=== PATIENT | female | born 1985 | race Two or more races ===

== ENCOUNTER 2016-09-09 15:59 | Emergency (ER) | payer BC ==
[~2016-09-09] VITALS: Ht 170.2 cm; Wt 61.7 kg
[~2016-09-09 15:59] MED LIST: ATARAX25 MG ORAL; AZITHROMYCIN250 MG PO; BENADRYL25 MG ORAL; CIPROFLOXACIN; CLOBETASOL EMOL15 GM TP; IBUPROFEN600 MG ORAL; MECLIZINE HCL25 MG ORAL; NKM; PREDNISONE20 MG ORAL; RANITIDINE HCL150 MG ORAL; VIGAMOX1 DROP RIGHT EYE; ZITHROMAX250 MG ORAL; [UNRECOGNIZED DRUG - OTHER]; birth control
[2016-09-09 16:57] LABS: APPEARANCE,URINE CLEAR; KETONES,URINE NEGATIVE (NEGATIVE); LEUKOCYTE ESTERASE ,URINE NEGATIVE (NEGATIVE); NITRITE,URINE NEGATIVE (NEGATIVE); PH,URINE 6 (4.5-8.0); PROTEIN,URINE NEGATIVE (NEGATIVE); UROBILINOGEN,URINE NORMAL MG/DL (0.0-1.0)
[2016-09-09] MEDS ORDERED: DEBROX15 M1 BOTH EARS (17:03)
[2016-09-09] MEDS ORDERED: AMOXICILLIN500 MG ORAL (17:03)
[2016-09-09 17:16] VITALS: BP 102/57
[2016-09-10] MEDS ORDERED: ZITHROMAX250 MG ORAL (15:20)
--- NOTE | 2016-09-11 14:53 | Emergency Room Report ---
History of Present Illness General Chief Complaint: Flu Like Symptoms Source: Patient Present Illness HPI Patient is a 30-year-old female presenting for sore throat, cough, and chills for the past 2 months. Pain is described as a 7/10 dull ache to the back of the throat and is worse with swallowing. She denies any sick contacts recent travel. She admits to slight nausea but denies V, SOB, CLARKE, neck pain, rash, abd pain Allergies: Coded Allergies: No Known Allergies (Unverified , 05/24/12) Patient History Past Medical History: see triage record Pertinent Family History: none Last Menstrual Period: 09/03/16 Now: No Reviewed Nursing Documentation: PMH: Agreed, PSxH: Agreed Nursing Documentation-PMH Past Medical History: No Stated History Review of Systems All Other Systems: negative except mentioned in HPI Physical Exam Vital Signs Date Time Temp Pulse Resp B/P Pulse Ox O2 Delivery O2 Flow Rate FiO2 09/09/16 16:09 97.9 80 16 102/57 97 Room Air Sp02 EP Interpretation: reviewed, normal General Appearance: no apparent distress, alert, GCS 15, non-toxic Head: normocephalic, atraumatic Eyes: bilateral eye PERRL, bilateral eye normal inspection ENT: hearing grossly normal, no angioedema, normal voice, tonsillar swelling, pharyngeal erythema, tonsillar exudate, other - cerumen impaction Neck: full range of motion, supple/symm/no masses Respiratory: chest non-tender, lungs clear, normal breath sounds, speaking full sentences Musculoskeletal: back normal, gait/station normal, normal range of motion, non- tender Neurologic: alert, oriented x3, responsive, motor strength/tone normal, sensory intact, speech normal Psychiatric: judgement/insight normal, memory normal, mood/affect normal, no suicidal/homicidal ideation Skin: normal color, no rash, warm/dry, well hydrated Lymphatic: adenopathy Medical Decision Making PA Attestation Dr. Keller is my supervising physician. Patient management was discussed with my supervising physician Diagnostic Impression: Primary Impression: Pharyngitis, acute Qualified Codes: J02.9 - Acute pharyngitis, unspecified Additional Impression: Impacted cerumen of both ears ER Course Patient is a 30-year-old female presenting for sore throat, cough, and chills for the past 2 months Differential diagnosis include but not limited to pharyngitis, sinusitis, AOM, bronchitis, PNA Physical exam: Vitals within normal limits. Afebrile. No apparent distress HEENT exam: There is bilateral tonsillar edema, erythema, and exudate. Uvula midline. Moist mucous membranes. There is bilateral cervical lymphadenopathy. There is bilat cerumen impaction. Lungs are clear to auscultation bilaterally Skin is warm and dry. No rash The patient will be discharged home with a prescription for amoxicillin and debrox and is given ER precautions. Patient will followup with primary care Note: the pt has called back and spoke to MIRTHA Barth. Pt was not tolerating amoxicillin and was changed to azithromycin. Last Vital Signs Date Time Temp Pulse Resp B/P Pulse Ox O2 Delivery O2 Flow Rate FiO2 09/09/16 17:16 97.9 78 16 102/57 97 Room Air Status: improved Disposition: HOME, SELF-CARE Condition: Improved Scripts Azithromycin* (ZITHROMAX*) 250 Mg Tablet 250 MG ORAL DAILY for 5 Days, #6 TAB 1 Refill Prov: Becca Barth 09/10/16 Carbamide Peroxide (DEBROX) 15 Ml Drops 10 DROP BOTH EARS TWICE A DAY for 4 Days, ML 0 Refills Prov: EZEQUIEL PLATA 09/09/16 Amoxicillin* (AMOXIL*) 500 Mg Capsule 500 MG ORAL Q12HR, #20 CAP Prov: EZEQUIEL PLATA 09/09/16 Referrals: ZAFAR WYATT (PCP) Patient Instructions: Cerumen Impaction, Pharyngitis Additional Instructions: I discussed my findings with the patient. All questions and concerns have been answered. Treatment and medication compliance have been addressed. I advised the patient that they need to follow up with PMD in 3-5 days. Return to ED if pain remains or worsens, cough worsens or remains, you notice blood in your sputum, you notice wheezing, you experience a fever, or if needed for any reason. Patient verbalized understanding of discharge instructions. EZEQUIEL PLATA September 11, 2016 14:53
== END 2016-09-09 17:18 | disposition home or self-care (01) ==
LOC: EMR 16:40
DX: J02.9 Acute pharyngitis, unspecified (principal); H61.23 Impacted cerumen, bilateral; R11.0 Nausea
CPT/HCPCS: 81003; 81025; 99284

== ENCOUNTER 2016-11-05 01:13 | Emergency (ER) | payer BC ==
[~2016-11-05] VITALS: Ht 170.2 cm; Wt 60.3 kg
[~2016-11-05 01:13] MED LIST changes: +AMOXICILLIN500 MG ORAL; +DEBROX15 M1 BOTH EARS
--- NOTE | 2016-11-05 01:35 | Emergency Room Report ---
History of Present Illness General Chief Complaint: Vomiting Source: Patient Present Illness HPI This is a 31-year-old female with no past medical history. She presents with chief complaint of abdominal cramps with vomiting and diarrhea. Onset about an hour half ago. While she was at a seafood restaurant, she started having diarrhea. On the way home so vomiting. Salvo weak. Denies any fever or chills. Vomiting is nonbloody nonbilious. Diarrhea is watery. No other complaint. Allergies: Coded Allergies: No Known Allergies (Unverified , 05/24/12) Patient History Past Medical History: see triage record, old chart reviewed Past Surgical History: other Pertinent Family History: none Social History: Denies: smoking Last Menstrual Period: 2 weeks ago Now: No Immunizations: other Reviewed Nursing Documentation: PMH: Agreed, PSxH: Agreed Nursing Documentation-PMH Past Medical History: No Stated History Review of Systems Eye: Denies: blurred vision, eye pain ENT: Denies: ear pain, nose congestion, throat swelling Respiratory: Denies: cough, shortness of breath Cardiovascular: Denies: chest pain, palpitations Gastrointestinal: Reports: abdominal pain, diarrhea, nausea, vomiting Musculoskeletal: Denies: back pain, joint pain Skin: Denies: rash Neurological: Denies: headache, numbness Endocrine: Denies: increased thirst, increased urine Hematologic/Lymphatic: Denies: easy bruising All Other Systems: negative except mentioned in HPI Physical Exam Vital Signs Date Time Temp Pulse Resp B/P Pulse Ox O2 Delivery O2 Flow Rate FiO2 7 01:19 98.1 93 16 111/66 98 Room Air vitals normal Sp02 EP Interpretation: reviewed, normal General Appearance: well appearing, no apparent distress, alert Head: normocephalic, atraumatic Eyes: bilateral eye EOMI, bilateral eye PERRL ENT: hearing grossly normal, normal pharynx Neck: full range of motion, supple, no meningismus Respiratory: chest non-tender, lungs clear, normal breath sounds Cardiovascular #1: regular rate, rhythm, no murmur Gastrointestinal: normal bowel sounds, non tender, no mass, no organomegaly, no bruit, non-distended Musculoskeletal: back normal, gait/station normal, normal range of motion Psychiatric: mood/affect normal Skin: warm/dry Medical Decision Making Diagnostic Impression: Primary Impression: Nausea vomiting and diarrhea ER Course Patient presents with nausea vomiting and diarrhea. Better now. Most likely a gastroenteritis. No evidence of acute abdomen. No evidence of infection. We' ll discharge home. Lab Results Impression labs unremarkable Last Vital Signs Date Time Temp Pulse Resp B/P Pulse Ox O2 Delivery O2 Flow Rate FiO2 11/05/16 01:19 98.1 93 16 111/66 98 Room Air Status: improved Disposition: HOME, SELF-CARE Condition: Stable Scripts Ondansetron (Zofran) 4 Mg Tablet 4 MG ORAL Q6H Y for Nausea & Vomiting, #5 TAB 0 Refills Prov: KULWINDER HARRISON M.D. 11/05/16 Patient Instructions: Nausea and Vomiting, Adult Additional Instructions: Followup with your Dr. in 2 to 3 days. Return if symptom worsen. KULWINDER HARRISON M.D. Nov 05, 2016 01:35
[2016-11-05] MEDS ORDERED: Ketorolac 30mg Inj IV ONE (01:45)
[2016-11-05 01:52] LABS: APPEARANCE,URINE CLEAR; KETONES,URINE NEGATIVE (NEGATIVE); LEUKOCYTE ESTERASE ,URINE NEGATIVE (NEGATIVE); NITRITE,URINE NEGATIVE (NEGATIVE); PH,URINE 5 (4.5-8.0); PROTEIN,URINE NEGATIVE (NEGATIVE); UROBILINOGEN,URINE NORMAL MG/DL (0.0-1.0)
[2016-11-05 01:55] LABS: RBC,URINE 0 /HPF (0 - 2); SQUAMOUS EPITHELIAL CELL,UR FEW /LPF (NONE/OCC); WBC,URINE 0 /HPF (0 - 2)
[2016-11-05 02:03] LABS: LYMPHOCYTES % (AUTO) 45.1 % (20.0-45.0); MEAN CORPUSCULAR HEMOGLOBIN 33.2 PG (27.0-31.0); MEAN CORPUSCULAR HGB CONC 32.8 G/DL (32.0-36.0); MEAN CORPUSCULAR VOLUME 101 FL (80-99); MEAN PLATELET VOLUME 7.1 FL (6.5-10.1); MONOCYTES % (AUTO) 9.1 % (1.0-10.0); NEUTROPHILS % (AUTO) 42.9 % (45.0-75.0); PLATELET COUNT 248 K/UL (150-450); RED BLOOD COUNT 4.21 M/UL (4.20-5.40); RED CELL DISTRIBUTION WIDTH 11.1 % (11.6-14.8); WHITE BLOOD COUNT 8.3 K/UL (4.8-10.8)
[2016-11-05 02:20] LABS: ANION GAP 12 (5-15); CALCIUM 8.6 mg/dL (8.6-10.2); CARBON DIOXIDE 25 mEQ/L (20-30); CHLORIDE 99 mEQ/L (98-107); GLOMERULAR FILTRATION RATE > 60 mL/min (>60); HEMOLYSIS 3; POTASSIUM 4.2 mEQ/L (3.4-4.9); SODIUM 136 mEQ/L (135-145)
[2016-11-05] MEDS ORDERED: ZOFRAN4 MG ORAL (02:32)
[2016-11-05 02:38] VITALS: BP 114/68
[2016-11-05 02:40] VITALS: BP 114/68
== END 2016-11-05 02:41 | disposition home or self-care (01) ==
LOC: EMR 01:35
DX: R11.2 Nausea with vomiting, unspecified (principal); R19.7 Diarrhea, unspecified
CPT/HCPCS: 36415; 80048; 81001; 81025; 85025; 96360; 96374; 96375; 99284; J1885; J2405

== ENCOUNTER 2016-12-23 10:13 | Emergency (ER) | payer BC ==
[~2016-12-23] VITALS: Ht 170.2 cm; Wt 67.1 kg
[~2016-12-23 10:13] MED LIST changes: +ZOFRAN4 MG ORAL
[2016-12-23 10:23] VITALS: BP 126/84
[2016-12-23] MEDS ORDERED: Dicyclomine HCl 10mg/5ml oral soln ORAL ONE (10:45)
[2016-12-23] MEDS ORDERED: ZOFRAN4 MG ORAL (11:05)
[2016-12-23] MEDS ORDERED: BENTYL10 MG ORAL (11:05)
[2016-12-23 11:22] LABS: APPEARANCE,URINE SLIGHTLY CLOUDY; KETONES,URINE NEGATIVE (NEGATIVE); LEUKOCYTE ESTERASE ,URINE NEGATIVE (NEGATIVE); NITRITE,URINE NEGATIVE (NEGATIVE); PH,URINE 5 (4.5-8.0); PROTEIN,URINE 1+ (NEGATIVE); UROBILINOGEN,URINE NORMAL MG/DL (0.0-1.0)
[2016-12-23 11:33] VITALS: BP 126/84
[2016-12-23 11:45] LABS: BACTERIA,URINE FEW /HPF; RBC,URINE 0-2 /HPF (0 - 2); SQUAMOUS EPITHELIAL CELL,UR MODERATE /LPF (NONE/OCC); WBC,URINE 0-2 /HPF (0 - 2)
--- NOTE | 2016-12-27 20:23 | Emergency Room Report ---
History of Present Illness General Chief Complaint: Vomiting Source: Patient Present Illness HPI Patient is a 31-year-old female who presented after increased vomiting. The patient reported having multiple episodes of vomiting as well as some diarrhea which occurred after eating some seafood. Patient reports having no rash. She reported having multiple episodes which began approximately 6 hours after seafood. She denied any black or bloody stools. She denied hematemesis. Patient stated that she had no fever. She denied recent travel. Allergies: Coded Allergies: No Known Allergies (Unverified , 05/24/12) Patient History Past Medical History: see triage record Last Menstrual Period: 12/16/16 Now: No Reviewed Nursing Documentation: PMH: Agreed, PSxH: Agreed Nursing Documentation-PMH Past Medical History: No Stated History Review of Systems All Other Systems: negative except mentioned in HPI Physical Exam Vital Signs Date Time Temp Pulse Resp B/P (MAP) Pulse Ox O2 Delivery O2 Flow Rate FiO2 12/23/16 10:17 98.1 102 14 126/84 100 Room Air Sp02 EP Interpretation: reviewed, normal General Appearance: normal inspection, well appearing, no apparent distress, alert, GCS 15 Head: atraumatic ENT: normal ENT inspection, hearing grossly normal, normal voice Neck: normal inspection, full range of motion, supple, no bony tend Respiratory: normal inspection, lungs clear, normal breath sounds, no respiratory distress, no retraction, no wheezing Cardiovascular #1: regular rate, rhythm, no edema Gastrointestinal: normal inspection, normal bowel sounds, non tender, soft, no guarding, no hernia Genitourinary: no CVA tenderness Musculoskeletal: normal inspection, back normal, normal range of motion Neurologic: normal inspection, alert, oriented x3, responsive, room service waiter/waitress III-XII nml as tested, speech normal Psychiatric: normal inspection, judgement/insight normal, mood/affect normal Skin: normal inspection, normal color, no rash Medical Decision Making Diagnostic Impression: Primary Impression: Gastroenteritis ER Course Patient presented for abdominal pain. Differential diagnoses included ischemic bowel, appendicitis, perforated viscus, abdominal aortic aneurysm, inferior myocardial infarction, viral gastroenteritis. Because of complexity of patient' s case laboratory testing was ordered. Laboratory testing was unremarkable. The patient was noted to have some improvement in her symptoms after medications.The patient is advised to follow up with primary care doctor in 1-2 days. Patient is advised to return if any worsening condition or if any changes in status that are concerning. Labs Test 12/23/16 10:45 Urine Color Pale yellow Urine Appearance Slightly cloudy Urine pH 5 (4.5-8.0) Urine Specific [place] 1.025 (1.005-1.035) Urine Protein 1+ (NEGATIVE) Urine Glucose (UA) Negative (NEGATIVE) Urine Ketones Negative (NEGATIVE) Urine Occult Blood Negative (NEGATIVE) Urine Nitrite Negative (NEGATIVE) Urine Bilirubin Negative (NEGATIVE) Urine Urobilinogen Normal MG/DL (0.0-1.0) Urine Leukocyte Esterase Negative (NEGATIVE) Urine RBC 0-2 /HPF (0 - 2) Urine WBC 0-2 /HPF (0 - 2) Urine Squamous Epithelial Cells Moderate /LPF (NONE/OCC) Urine Bacteria Few /HPF (NONE) Urine HCG, Qualitative Negative Last Vital Signs Date Time Temp Pulse Resp B/P (MAP) Pulse Ox O2 Delivery O2 Flow Rate FiO2 12/23/16 11:33 98.1 78 14 126/84 100 Room Air Status: improved Disposition: HOME, SELF-CARE Condition: Stable Scripts Dicyclomine Hcl* (BENTYL*) 10 Mg Capsule 10 MG ORAL FOUR TIMES A DAY, #20 CAP Prov: Adalberto Gaona 12/23/16 Ondansetron (Zofran) 4 Mg Tablet 4 MG ORAL Q6H Y for Nausea & Vomiting, #30 TAB 0 Refills Prov: Adalberto Gaona 12/23/16 Patient Instructions: Nausea and Vomiting, Adult Adalberto Gaona Dec 27, 2016 20:22
== END 2016-12-23 11:33 | disposition home or self-care (01) ==
LOC: EMR 10:49
DX: K52.9 Noninfective gastroenteritis and colitis, unspecified (principal)
CPT/HCPCS: 81003; 81025; 99284

== ENCOUNTER 2017-01-02 23:31 | Emergency (ER) | payer BC ==
[~2017-01-02] VITALS: Ht 162.6 cm; Wt 72.6 kg
[~2017-01-02 23:31] MED LIST changes: +BENTYL10 MG ORAL
[2017-01-02] MEDS ORDERED: DOXYCYCLINE MO100 MG ORAL (23:56)
--- NOTE | 2017-01-02 23:57 | Emergency Room Report ---
History of Present Illness General Chief Complaint: Skin Rash/Abscess Source: Patient Present Illness HPI Is a 31-year-old female with chief complaint of right ankle insect/spider bite. Onset for last 2 [address] a [place] dressing/iodine on it. Swelling to be getting worse. No fever or chills. No nausea no vomiting. Denies any other complaint. Allergies: Coded Allergies: No Known Allergies (Unverified , 05/24/12) Patient History Past Medical History: see triage record, old chart reviewed Past Surgical History: none Pertinent Family History: none Social History: Denies: smoking Now: No Immunizations: other Reviewed Nursing Documentation: PMH: Agreed, PSxH: Agreed Nursing Documentation-PMH Past Medical History: No Stated History Review of Systems Eye: Denies: eye pain, blurred vision ENT: Denies: ear pain, nose congestion, throat swelling Respiratory: Denies: cough, shortness of breath Cardiovascular: Denies: chest pain, palpitations Gastrointestinal: Denies: abdominal pain, diarrhea, nausea, vomiting Musculoskeletal: Reports: joint swelling, Denies: back pain, joint pain Skin: Denies: rash Neurological: Denies: headache, numbness Endocrine: Denies: increased thirst, increased urine Hematologic/Lymphatic: Denies: easy bruising All Other Systems: negative except mentioned in HPI Physical Exam Vital Signs Date Time Temp Pulse Resp B/P (MAP) Pulse Ox O2 Delivery O2 Flow Rate FiO2 01/02/17 23:44 97.9 72 16 120/70 97 Room Air vitals normal Sp02 EP Interpretation: reviewed, normal General Appearance: well appearing, no apparent distress, alert Head: normocephalic, atraumatic Eyes: bilateral eye PERRL, bilateral eye EOMI ENT: hearing grossly normal, normal pharynx Neck: full range of motion, supple, no meningismus Respiratory: chest non-tender, lungs clear, normal breath sounds Cardiovascular #1: regular rate, rhythm, no murmur Gastrointestinal: normal bowel sounds, non tender, no mass, no organomegaly, no bruit, non-distended Musculoskeletal: back normal, gait/station normal, normal range of motion, other - Right ankle: There is a 2 cm area of erythema. Some surrounding edema but no abscess. Full range of motion. Sensation normal. No fluctuant area appear Psychiatric: mood/affect normal Skin: warm/dry Medical Decision Making Diagnostic Impression: Primary Impression: Cellulitis of left ankle ER Course Patient with cellulitis of the ankle. No abscess that can be I&D. No evidence of deep infection. No evidence of septic joint. No necrotizing fasciitis. We' ll discharge him. Last Vital Signs Date Time Temp Pulse Resp B/P (MAP) Pulse Ox O2 Delivery O2 Flow Rate FiO2 01/02/17 23:44 97.9 72 16 120/70 97 Room Air Status: unchanged Disposition: HOME, SELF-CARE Condition: Stable Scripts Doxycycline Monohydrate* (DOXYCYCLINE MONOHYDRATE*) 100 Mg Capsule 100 MG ORAL Q12H, #14 CAP 0 Refills Prov: KULWINDER HARRISON M.D. 01/02/17 Additional Instructions: followup with your Dr. in 7 days. Return if worse. KULWINDER HARRISON M.D. Jan 02, 2017 23:57
[2017-01-03 00:02] VITALS: BP 120/70
== END 2017-01-02 23:57 | disposition home or self-care (01) ==
LOC: EMR 23:57
DX: L03.116 Cellulitis of left lower limb (principal); W57.XXXA Bitten or stung by nonvenomous insect and other nonvenomous arthropods, initial encounter; Y93.9 Activity, unspecified; Y99.9 Unspecified external cause status; M25.40 Effusion, unspecified joint
CPT/HCPCS: 99283

== ENCOUNTER 2017-02-23 13:43 | Emergency (ER) | payer BC ==
[~2017-02-23] VITALS: Ht 167.6 cm; Wt 68.0 kg
[~2017-02-23 13:43] MED LIST changes: +DOXYCYCLINE MO100 MG ORAL
[2017-02-23 14:10] VITALS: BP 108/57
[2017-02-23] MEDS ORDERED: BENADRYL25 MG ORAL (14:44)
[2017-02-23] MEDS ORDERED: CEPHALEXIN500 MG ORAL (14:44)
[2017-02-23 14:50] VITALS: BP 108/57
--- NOTE | 2017-02-23 21:50 | Emergency Room Report ---
History of Present Illness General Chief Complaint: General Complaint Source: Patient Present Illness HPI The patient is a 31-year-old female presenting for possible skin infection. She states that she first noticed insect bites on the left lower leg 2 days ago. she states that pain has now increased as well as the redness to these areas.Pain is a 7/10 dull ache and is worse with touch. No radiation. She denies any fever or chills. She denies any other symptoms Allergies: Coded Allergies: No Known Allergies (Unverified , 05/24/12) Patient History Past Medical History: see triage record Pertinent Family History: none Last Menstrual Period: Two weeks ago Now: No Reviewed Nursing Documentation: PMH: Agreed, PSxH: Agreed Nursing Documentation-PMH Past Medical History: No Stated History Review of Systems All Other Systems: negative except mentioned in HPI Physical Exam Vital Signs Date Time Temp Pulse Resp B/P (MAP) Pulse Ox O2 Delivery O2 Flow Rate FiO2 02/23/17 14:00 97.9 80 108/57 97 Room Air 02/23/17 14:10 18 Sp02 EP Interpretation: reviewed, normal General Appearance: no apparent distress, alert, GCS 15, non-toxic Head: normocephalic, atraumatic Eyes: bilateral eye normal inspection, bilateral eye PERRL ENT: hearing grossly normal, normal pharynx, no angioedema, normal voice Neck: full range of motion, supple/symm/no masses Respiratory: chest non-tender, lungs clear, normal breath sounds, speaking full sentences Musculoskeletal: back normal, gait/station normal, normal range of motion Neurologic: alert, oriented x3, responsive, motor strength/tone normal, sensory intact, speech normal Psychiatric: judgement/insight normal, memory normal, mood/affect normal, no suicidal/homicidal ideation Skin: rash - L lower leg: There is erythema, edema, tenths to palpation, and increased temperature to the lesions Lymphatic: no adenopathy Medical Decision Making PA Attestation Dr. Trevizo is my supervising physician. Patient management was discussed with my supervising physician Diagnostic Impression: Primary Impression: Cellulitis ER Course The patient is a 31-year-old female presenting for possible skin infection. Differential diagnoses considered but not limited to: abscess, cellulitis, insect bite, allergic reaction, among others PE: Afebrile. NAD There is erythema, edema, tenderness to palpation, and increased temperature to the lesions of the L calf. The patient will be discharged home with prescription for antibiotics and needs to followup with her primary doctor. ER precautions are given Last Vital Signs Date Time Temp Pulse Resp B/P (MAP) Pulse Ox O2 Delivery O2 Flow Rate FiO2 02/23/17 14:50 97.9 78 18 108/57 97 Room Air Status: improved Disposition: HOME, SELF-CARE Condition: Improved Scripts Diphenhydramine Hcl* (BENADRYL*) 25 Mg Capsule 25 MG ORAL Q6H Y for Itching, #20 CAP Prov: EZEQUIEL PLATA.A. 02/23/17 Cephalexin* (KEFLEX*) 500 Mg Capsule 500 MG ORAL EVERY 6 HOURS, #28 CAP Prov: EZEQUIEL PLATA.A. 02/23/17 Referrals: NON PHYSICIAN (PCP) Patient Instructions: Cellulitis Additional Instructions: I discussed my findings with the patient. All questions and concerns have been answered. Treatment and medication compliance have been addressed. I advised the patient that they need to follow up with PMD in 3-5 days. Return to ED if symptoms worsen, new symptoms arise, or if needed for any reason. Patient verbalized understanding of discharge instructions. EZEQUIEL PLATA Feb 23, 2017 21:50
== END 2017-02-23 17:19 | disposition home or self-care (01) ==
LOC: EMR 14:50
DX: L03.116 Cellulitis of left lower limb (principal)
CPT/HCPCS: 99283